=== PATIENT | male | born 1980 | race Caucasian/White ===

== ENCOUNTER 2018-03-01 20:13 | Inpatient (IN) | payer MEDICAID ==
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
[2018-03-01 21:19] LABS: % BASOPHILS 0.7 % (0.0-2.0); % EOSINOPHILS 0.3 % (0.0-5.0); % LYMPHOCYTES 7.2 % (20.0-50.0); % MONOCYTES 11.4 % (2.0-10.0); % NEUTROPHILS 80.4 % (40.0-80.0); BASOPHILE ABSOLUTE 0.1 Th/cumm (0-0.2); HEMATOCRIT 50.6 % (41.0-60); HEMOGLOBIN 17.2 gm/dL (12-16); LYMPHOCYTE ABSOLUTE 0.6 Th/cmm (1.5-3.0); MEAN CELL VOLUME 89.6 fl (80-99); MEAN CORPUSCULAR HEMOGLOBIN 30.4 pg (26.0-30.0); MEAN PLATELET VOLUME 6.6 fl; NEUTROPHILE ABSOLUTE 6.9 Th/cmm (1.8-8.0); PLATELET COUNT 239 Th/cmm (150-400); RED BLOOD COUNT 5.65 Mil/cmm (4.30-5.70); RED CELL DISTRIBUTION WIDTH 15.3 % (11.5-20.0); WHITE BLOOD COUNT 8.6 Th/cmm (4.8-10.8)
[2018-03-01 21:36] LABS: ALBUMIN 4.2 gm/dL (4.2-5.5); ALKALINE PHOSPHATASE 148 U/L (34-104); BILIRUBIN,TOTAL 0.4 mg/dL (0.3-1.0); BUN - UREA NITROGEN 8 mg/dL (7-25); CALCIUM SERUM 9.8 mg/dL (8.6-10.3); CHLORIDE 99 mEq/L (98-107); CREATININE - SERUM 0.8 mg/dL (0.7-1.3); GFR AFRICAN-AMERICAN > 60.0 ml/min (>90); GFR NON AFRICAN-AMERICAN > 60.0 ml/min; SGOT 16 U/L (13-39); SGPT/ALT 23 U/L (7-52); SODIUM SERUM 132 mEq/L (136-145); TOTAL PROTEIN,SERUM 8.6 gm/dL (6.0-8.3)
[2018-03-01 21:39] LABS: GLUCOSE 527 mg/dL (70-105)
[2018-03-01] MEDS ORDERED: Sodium Chloride 0.9% 1,000 ML IV ONE ×2 (23:07→23:11)
[2018-03-01 23:43] LABS: URINE SOURCE MIDSTREAM
[2018-03-01 23:52] LABS: URINE CLARITY CLEAR (CLEAR); URINE COLOR YELLOW
[2018-03-01 23:53] LABS: URINE BILIRUBIN NEGATIVE (NEGATIVE); URINE GLUCOSE (UA) 500 mg/dL (NEGATIVE); URINE MICROSCOPIC INDICATED? YES
[2018-03-01 23:54] LABS: URINE BLOOD MODERATE (NEGATIVE); URINE KETONE 40 mg/dL (NEGATIVE); URINE LEUKOCYTE ESTERASE NEGATIVE (NEGATIVE); URINE NITRATE NEGATIVE (NEGATIVE); URINE PROTEIN 30 mg/dL (NEGATIVE); URINE UROBILINOGEN 0.2 E.U./dL (0.2 - 1.0)
[2018-03-01 23:58] LABS: URINE BACTERIA FEW /hpf (NONE SEEN); URINE EPITHELIAL CELLS OCCASIONAL /lpf (FEW)
[2018-03-02] MEDS ORDERED: INSULIN HUMAN REGULAR 100 UNITS/ML UNIT SUBQ ONE (00:02)
[2018-03-02] MEDS ORDERED: INSULIN HUMAN REGULAR 100 UNITS/ML UNIT ONE (00:13)
[2018-03-02] MEDS ORDERED: Sodium Chloride 0.9% 1,000 ML IV ONE ×2 (00:51→02:02)
[2018-03-02 01:01] LABS: ALLEN TEST Positive; pH 7.26 (7.35-7.45)
[2018-03-02] MEDS ORDERED: Sodium Chloride 0.9% 250 ML IV ONE (02:08)
[2018-03-02] MEDS: Sodium Chloride 0.9% 1,000 ML IV SCH ×3 (03:40→14:41)
[2018-03-02] MEDS ORDERED: INSULIN ASPART SLIDING SCALE 100 UNITS/ML UNIT SUBQ SCH ×3 (07:30→12:00)
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
--- NOTE | 2018-03-02 08:59 | History and Physical ---
History of Present Illness - HPI Chief Complaint: General weakness, dizziness, nausea and vomit. HPI: Patient refer that x 2 weeks he has having nausea, some vomit and general weakness. Patient was send to ER for evaluation and was found blood sugar above 500, and ketones in urine. Vital Signs: Last Vital Signs Temp 97.8 F 03/02/18 07:57 Pulse 99 03/02/18 07:57 Resp 18 03/02/18 08:00 BP 113/61 03/02/18 07:57 Pulse Ox 96 03/02/18 07:57 Past Medical History Cardiovascular: Report: HTN Pulmonary: Report: No Pertinent Hx CONTINUING EDUCATION DEAN: Report: Other (Paraplegia) GI: Report: Other (Colostomy bag) Psych: Report: Depression, Schizophrenia Musculoskeletal: Report: Weakness, Other (Paraplegia) Rheumatologic: Report: No pertinent Hx Infectious Disease: Report: No Pertinent Hx Renal/: Report: Other (Kerr in place) Endocrine: Report: Diabetes Dermatology: Report: No Pertinent Hx - Past Surgical History Past Surgical History: Other (Colostomy) Family Medical History - Family Member Mother History Unknown: Yes Hx Family Diabetes: Yes Social History Smoke: No Alcohol: None Drugs: None Lives: Alf Domestic Violence: Negative - Medications Home Medications: Home Medication Medication Instructions Recorded Type Acetaminophen [Tylenol Extra 1,000 mg PO Q6HR PRN 03/01/18 History Strength] Acetaminophen/Diphenhydramine 2 tab PO HS PRN 03/01/18 History [Tylenol Pm Ex-Strength Caplet] Atorvastatin Calcium [Lipitor] 10 mg PO HS 03/01/18 History Baclofen [Baclofen*] 20 mg PO TID 03/01/18 History Diclofenac [Voltaren] 75 mg PO BID 03/01/18 History Divalproex Sodium [Depakote] 500 mg PO BID 03/01/18 History Escitalopram Oxalate [Lexapro] 10 mg PO DAILY 03/01/18 History Multivitamin with Minerals 1 tab PO DAILY 03/01/18 History [Multivitamins with Minerals] Nitroglycerin [Nitroglycerin*] 0.4 mg SL Q5MIN PRN 03/01/18 History Risperidone [Risperdal] 1 mg PO BID 03/01/18 History - Allergies Allergies/Adverse Reactions: Allergies Allergy/AdvReac Type Severity Reaction Status Date / Time No Known Allergies Allergy Verified 03/01/18 20:17 Review of Systems - Review of Systems Constitutional: Report: Weakness Eyes: Report: No Significant ENT: Report: No Significant Respiratory: Report: No Significant Cardiovascular: Report: No Significant Gastrointestinal: Report: Nausea, Vomiting Genitourinary: Report: No Significant Musculoskeletal: Report: Other (Paraplegia) Skin: Report: No Significant Neurological: Report: Weakness Physical Exam - Physical Exam HEENT: Report: Ears Nose Throat within normal limits Neck: Report: Within normal limits Cardiovascular Systems: Report: Regular, Rate and Rhythm Respiratory: Report: Breath Sounds are within normal limits Abdomen: Report: Non-tender to palpation, Other (Colostomy bag in place) Back: Report: Inspection of back is within normal limits. Extremities: Report: Non-tender to palpation., Other (Paraplegia) Skin: Report: Color of skin is within normal limits, Warm Neuro/Psych: Report: Depressed affect - Lab Results All Lab Results last 24 hours: Laboratory Results - last 24 hr 03/01/18 03/01/18 03/01/18 21:12 21:12 21:12 WBC 8.6 RBC 5.65 Hgb 17.2 Hct 50.6 MCV 89.6 MCH 30.4 H MCHC Differential 34.0 RDW 15.3 Plt Count 239 MPV 6.6 Neutrophils % 80.4 H Lymphocytes % 7.2 L Monocytes % 11.4 H Eosinophils % 0.3 Basophils % 0.7 Specimen Source Sample Site pH pCO2 pO2 HCO3 Base Excess O2 Saturation Daron Test Vent Rate Inspired O2 Tidal Volume PEEP Pressure (ins/psv/peep) Critical Value Sodium 132 L Potassium 4.0 Chloride 99 Carbon Dioxide 9.0 L* Anion Gap 28.0 H BUN 8 Creatinine 0.8 Est GFR ( Amer) > 60.0 Est GFR (Non-Af Amer) > 60.0 BUN/Creatinine Ratio 10.0 Glucose 527 H* POC Glucose Whole Bld Lactic Acid 0.99 Calcium 9.8 Total Bilirubin 0.4 AST 16 ALT 23 Alkaline Phosphatase 148 H Total Protein 8.6 H Albumin 4.2 Globulin 4.4 Albumin/Globulin Ratio 1.0 Urine Source Urine Color Urine Clarity Urine pH Ur Specific [place] Urine Protein Urine Glucose (UA) Urine Ketones Urine Blood Urine Nitrate Urine Bilirubin Urine Urobilinogen Ur Leukocyte Esterase Urine RBC Urine WBC Ur Epithelial Cells Urine Bacteria 03/01/18 03/02/1819 23:20 00:01 00:40 WBC RBC Hgb Hct MCV MCH MCHC Differential RDW Plt Count MPV Neutrophils % Lymphocytes % Monocytes % Eosinophils % Basophils % Specimen Source ARTERIAL Sample Site Right Radial pH 7.26 L pCO2 23.0 L* pO2 64.0 L HCO3 13.1 L Base Excess -14.9 L O2 Saturation 88.0 L Daron Test Positive Vent Rate N/A Inspired O2 21 Tidal Volume N/A PEEP N/A Pressure (ins/psv/peep) N/A Critical Value MM,TECHNICAL EDITOR Sodium Potassium Chloride Carbon Dioxide Anion Gap BUN Creatinine Est GFR ( Amer) Est GFR (Non-Af Amer) BUN/Creatinine Ratio Glucose POC Glucose 482 H* Whole Bld Lactic Acid Calcium Total Bilirubin AST ALT Alkaline Phosphatase Total Protein Albumin Globulin Albumin/Globulin Ratio Urine Source MIDSTREAM Urine Color YELLOW Urine Clarity CLEAR Urine pH 6.0 Ur Specific [place] 1.020 Urine Protein 30 H Urine Glucose (UA) 500 H Urine Ketones 40 H Urine Blood MODERATE H Urine Nitrate NEGATIVE Urine Bilirubin NEGATIVE Urine Urobilinogen 0.2 Ur Leukocyte Esterase NEGATIVE Urine RBC 2-5 H Urine WBC 2-5 Ur Epithelial Cells OCCASIONAL Urine Bacteria FEW 03/02/18 03/02/18 00:59 06:47 WBC RBC Hgb Hct MCV MCH MCHC Differential RDW Plt Count MPV Neutrophils % Lymphocytes % Monocytes % Eosinophils % Basophils % Specimen Source Sample Site pH pCO2 pO2 HCO3 Base Excess O2 Saturation Daron Test Vent Rate Inspired O2 Tidal Volume PEEP Pressure (ins/psv/peep) Critical Value Sodium Potassium Chloride Carbon Dioxide Anion Gap BUN Creatinine Est GFR ( Amer) Est GFR (Non-Af Amer) BUN/Creatinine Ratio Glucose POC Glucose 458 H* 422 H Whole Bld Lactic Acid Calcium Total Bilirubin AST ALT Alkaline Phosphatase Total Protein Albumin Globulin Albumin/Globulin Ratio Urine Source Urine Color Urine Clarity Urine pH Ur Specific [place] Urine Protein Urine Glucose (UA) Urine Ketones Urine Blood Urine Nitrate Urine Bilirubin Urine Urobilinogen Ur Leukocyte Esterase Urine RBC Urine WBC Ur Epithelial Cells Urine Bacteria - Assessment Assessment: Patient is awake, alert, calm ,in no acute distress. Dx: DKA. New DM, Paraplegia , HTN, Obesity, schizophrenia, kerr in place, colostomy in place. - Plan Plan: Last Accuchek was 422. Patient is in IV NS, Sliding scale with accuchec q 6 hrs , Diabetic diet, Continue with SNF meds. Will continue to monitor.
[2018-03-02] MEDS: Diclofenac 75 mg Tab PO SCH ×2 (09:39→16:51)
[2018-03-02] MEDS: Multivitamin w/ Minerals Tab PO SCH (09:39)
[2018-03-02] MEDS: INSULIN ASPART SLIDING SCALE 100 UNITS/ML UNIT SUBQ SCH ×3 (14:43→21:14)
[2018-03-02] MEDS ORDERED: Atorvastatin Calcium 10 MG TAB PO SCH (21:00)
[2018-03-03] MEDS: INSULIN ASPART SLIDING SCALE 100 UNITS/ML UNIT SUBQ SCH ×4 (00:34→14:01)
[2018-03-03] MEDS: Sodium Chloride 0.9% 1,000 ML IV SCH (04:22)
[2018-03-03] MEDS ORDERED: Venelex 60gm Tube TP SCH (09:00)
[2018-03-03] MEDS: Diclofenac 75 mg Tab PO SCH (09:35)
[2018-03-03] MEDS: Multivitamin w/ Minerals Tab PO SCH (09:36)
--- NOTE | 2018-03-03 11:28 | Discharge Summary ---
General Discharge Summary - Discharge Summary Date of Admission: 03/03/18 Admitting Diagnosis: DKA, DM new onset, Paraplegia, HTN, Obesity, Schizophrenia , Ellis in place, Discharge Date: 03/03/18 Discharge Diagnosis: DKA resolved, DM new onset, Paraplegia, HTN, Obesity, Schizophrenia, Ellis in place, Colostomy in place. Laboratory Findings: Laboratory Results - last 24 hr 03/02/18 03/02/18 03/02/18 11:47 16:55 21:10 POC Glucose 349 H 381 H 440 H 03/03/18 03/03/18 03/03/18 00:27 04:25 11:06 POC Glucose 351 H 262 H 378 H Hospital Course: Patient responded to treatment and BS came in control Treatment: IV NS, Insulin sub. Continue with SNF meds, diabetic diet. Condition at Discharge: Stable Disposition: Discharge/Transfered to SNF Home Medications: Home Medication Medication Instructions Recorded Type Acetaminophen [Tylenol] 650 mg PO Q4HR PRN tab 03/03/18 Rx Atorvastatin Calcium [Lipitor] 10 mg PO HS tab 03/03/18 Rx Baclofen [Lioresal*] 20 mg PO TID tab 03/03/18 Rx Balsam Jamie/[place] Oil [Venelex] 1 appl TP DAILY appl 03/03/18 Rx Diclofenac [Voltaren] 75 mg PO BID tab 03/03/18 Rx Divalproex [Leigha CORREA] 500 mg PO BID tcp 03/03/18 Rx Escitalopram Oxalate [Lexapro] 10 mg PO DAILY tab 03/03/18 Rx Insulin Aspart Sliding Scale See Protocol SUBQ Q4HR unit 03/03/18 Rx [NovoLOG INSULIN SLIDING SCALE] Multivitamin w/ Minerals 1 tab PO DAILY tab 03/03/18 Rx [Theragran M] Ondansetron HCl [Zofran*] 4 mg IV Q6H PRN vial 03/03/18 Rx risperiDONE [Risperdal] 1 mg PO BID tab 03/03/18 Rx Inpatient Medications: Current Medications Acetaminophen (Tylenol) 650 mg PO Q4HR PRN PRN Reason: Fever and pain Stop: 05/01/18 02:07 Last Admin: 03/03/18 09:41 Dose: 650 mg Atorvastatin Calcium (Lipitor) 10 mg PO HS [facility]; Protocol Stop: 05/01/18 20:59 Last Admin: 03/02/18 21:14 Dose: 10 mg Baclofen (Lioresal) 20 mg PO TID [facility] Stop: 05/01/18 08:59 Last Admin: 03/03/18 09:35 Dose: 20 mg [place] Oil/[place] Balsam/Trypsin (Venelex) 1 appl TP DAILY [facility] Stop: 05/02/18 08:59 Diclofenac Sodium (Voltaren) 75 mg PO BID [facility] Stop: 05/01/18 08:59 Last Admin: 03/03/18 09:35 Dose: 75 mg Divalproex Sodium (Depakote Dr) 500 mg PO BID [facility]; Protocol Stop: 05/01/18 08:59 Last Admin: 03/03/18 09:35 Dose: 500 mg Escitalopram Oxalate (Lexapro) 10 mg PO DAILY [facility]; Protocol Stop: 05/01/18 08:59 Last Admin: 03/03/18 09:36 Dose: 10 mg Sodium Chloride (Nacl 0.9%) 1,000 mls @ 200 mls/hr IV .Q5H [facility] Stop: 05/01/18 02:35 Last Admin: 03/03/18 04:22 Dose: 200 mls/hr Insulin Aspart (Novolog Insulin Sliding Scale) 0 units SUBQ Q4HR [facility]; Protocol Stop: 05/01/18 11:59 Last Admin: 03/03/18 04:31 Dose: 6 units Ondansetron HCl (Zofran) 4 mg IV Q6H PRN PRN Reason: Nausea / Vomiting Stop: 05/01/18 06:22 Last Admin: 03/02/18 10:44 Dose: 4 mg Risperidone (Risperdal) 1 mg PO BID [facility]; Protocol Stop: 05/01/18 08:59 Last Admin: 03/03/18 09:36 Dose: 1 mg Activity: Bed Rest Discharge Diet: Other (Diabetic diet) Consults and Follow-Up: Abraham Iyer [Primary Care Provider] - Consulting Speciality: Other (PCP) Instructions: Diabetic Ketoacidosis
== END 2018-03-03 16:35 | DRG 420 ==
LOC: ER 20:13 → TELE 03-02 01:05
PROVIDERS: ADMIT General Practice; ATTEND General Practice
DX: E11.10 Type 2 diabetes mellitus with ketoacidosis without coma (principal); G82.20 Paraplegia, unspecified; F20.9 Schizophrenia, unspecified; I10 Essential (primary) hypertension; E66.9 Obesity, unspecified; Z93.3 Colostomy status; Z74.01 Bed confinement status; Z68.42 Body mass index [BMI] 45.0-49.9, adult
CPT/HCPCS: 36415-UA; 36600-90; 71045-TC; 80053-TC; 81001-TC; 82803-TC; 82948-90; 83036-90; 83605; 85007-TC; 85025-TC; 87086-90; 93005; 96374; 96375; C9113; J1815; J2405; J7030; Z7610